=== PATIENT | female | born 1960 | race African-American/Black ===

== ENCOUNTER 2020-12-15 20:30 | Inpatient (IN) | payer MEDICARE, OTHER, SELFPAY ==
[~2020-12-15] VITALS: Ht 165.1 cm; Wt 138.8 kg
[2020-12-15 20:30] VITALS: BP_SYST 130
[2020-12-15] MEDS ORDERED: HYDROcodone/ACETAMIN 5-325 MG TAB (NORCO/ VICODIN) PO ONE (21:30)
[2020-12-15] MEDS ORDERED: IPRATROPIUM/ALBUTEROL SULFATE 3 ML AMPUL.NEB (DUONEB) INH ONE (21:30)
[2020-12-15] MEDS ORDERED: HYDROcodone/ACETAMIN 5-325 MG TAB (NORCO/ VICODIN) ONE (21:56)
[2020-12-15 22:14] LABS: BASOPHILS # (AUTO) 0.1 K/uL (0.0-0.2); BASOPHILS % (AUTO) 1.2 % (0.0-2.0); EOSINOPHILS # (AUTO) 0.1 K/uL (0.0-0.4); EOSINOPHILS % (AUTO) 1.5 % (0.0-4.0); HEMATOCRIT 30.5 % (36-48); LYMPHOCYTES # (AUTO) 3.1 K/uL (1.0-5.5); LYMPHOCYTES % (AUTO) 36.8 % (20.5-51.5); MEAN CORPUSCULAR HEMOGLOBIN 29 pg (27-31); MEAN CORPUSCULAR HGB CONC 33 % (32-36); MEAN CORPUSCULAR VOLUME 89 fL (79.0-98.0); MONOCYTES # (AUTO) 0.8 K/uL (0.0-1.0); NEUTROPHILS # (AUTO) 4.4 K/uL (1.8-7.7); NEUTROPHILS % (AUTO) 51.5 % (40.0-70.0); PLATELET COUNT (AUTO) 255 K/uL (130-430); RED BLOOD CELL COUNT(AUTO) 3.42 MIL/uL (4.2-6.2); RED CELL DISTRIBUTION WIDTH 17.4 % (9.0-15.0); WHITE BLOOD COUNT (AUTO) 8.5 K/uL (4.8-10.8)
[2020-12-15 22:19] LABS: CALCIUM 8.9 mg/dL (8.4-11.0); CREATININE 0.65 mg/dL (0.55-1.30); POTASSIUM 3.5 mmol/L (3.5-5.1)
[2020-12-15 22:26] LABS: PROTHROMBIN TIME 10.6 SECS (9.5-12.5)
[2020-12-15 22:27] LABS: ALBUMIN 2.9 g/dL (3.4-4.8); TOTAL BILIRUBIN 0.3 mg/dL (0.0-1.0)
[2020-12-15] MEDS ORDERED: cefTRIAXone 1 GM IVPB PREMIX 50 ML IV ONE (23:15)
[2020-12-15] MEDS ORDERED: AZITHROMYCIN 250 MG TABLET PO ONE (23:15)
[2020-12-15] MEDS ORDERED: GLU500 PO (23:59)
[2020-12-15] MEDS ORDERED: ALBMDI INH (23:59)
[2020-12-15] MEDS ORDERED: ASCO500T20 PO (23:59)
[2020-12-15] MEDS ORDERED: HYDR-3110 PO (23:59)
[2020-12-15] MEDS ORDERED: MELO15TA13 PO (23:59)
[2020-12-15] MEDS ORDERED: NORT25CA5 PO (23:59)
[2020-12-15] MEDS ORDERED: ALVESCO PO (23:59)
[2020-12-15] MEDS ORDERED: MULT-1117 PO (23:59)
[2020-12-15] MEDS ORDERED: LIP40 PO (23:59)
[2020-12-15] MEDS ORDERED: OMEP20CA15 PO (23:59)
[2020-12-16] MEDS ORDERED: KETAMINE 30 MG/3 ML SYRINGE ONE (00:29)
[2020-12-16 04:11] VITALS: BP_SYST 127
[2020-12-16 04:26] LABS: BILIRUBIN,URINE NEGATIVE (NEGATIVE); CLARITY/URINE CLEAR (CLEAR); COLOR,URINE YELLOW (YELLOW); GLUCOSE,URINE NEGATIVE (NEGATIVE); KETONES,URINE NEGATIVE (NEGATIVE); LEUKOCYTE ESTERASE ,URINE 2+ (NEGATIVE); NITRITE, URINE POSITIVE (NEGATIVE); PROTEIN URINE NEGATIVE (NEGATIVE); UROBILINOGEN,URINE 0.2 (0.2-1.0)
[2020-12-16 04:32] LABS: BLOOD, URINE TRACE (NEGATIVE)
[2020-12-16 04:34] LABS: BACTERIA,URINE MANY /HPF (None Seen)
[2020-12-16] MEDS ORDERED: HYDROcodone/ACETAMIN 10-325 MG TAB ONE (05:30)
[2020-12-16 05:43] VITALS: BP_SYST 127
[2020-12-16] MEDS ORDERED: PIPERACILLIN/TAZO 3.375/DEX-IS 50 ML IV SCH (06:00)
[2020-12-16] MEDS: HYDROcodone/ACETAMIN 10-325 MG TAB PO PRN ×3 (06:13→17:07)
[2020-12-16 08:00] VITALS: BP_SYST 143
[2020-12-16] MEDS ORDERED: DOCUSATE SODIUM 250 MG CAPSULE PO SCH (09:00)
[2020-12-16] MEDS ORDERED: ALBUTEROL MDI INHALATION 8 GM INH INH SCH (10:45)
[2020-12-16] MEDS ORDERED: NON-FORMULARY MEDICATION (Hydrocodone Bit/Acetaminophen (Hydrocodon-Acetaminophen 5-300) 1 PO SCH (10:45)
[2020-12-16] MEDS ORDERED: ALBUTEROL SULFATE 0.083% 2.5 MG/3 ML VIAL.NEB INH ONE (10:59)
[2020-12-16] MEDS ORDERED: FLUCONAZOLE 100 MG TABLET (DIFLUCAN) PO ONE (11:00)
[2020-12-16] MEDS ORDERED: ENOXAPARIN SODIUM 100 MG/ML SYRINGE SUBCUT ONE (11:00)
[2020-12-16] MEDS ORDERED: DOXYCYCLINE HYCLATE 100 MG CAPSULE PO ONE (11:00)
[2020-12-16] MEDS ORDERED: ASPIRIN 81 MG TABLET(ECOTRIN) PO ONE (11:00)
[2020-12-16] MEDS: ALBUTEROL SULFATE 0.083% 2.5 MG/3 ML VIAL.NEB INH SCH (11:23)
[2020-12-16] MEDS ORDERED: ONDANSETRON HCL 4 MG/2 ML VIAL IVP PRN (11:45)
[2020-12-16] MEDS ORDERED: ACETAMINOPHEN 325 MG TABLET PO PRN (11:45)
[2020-12-16] MEDS ORDERED: DOCUSATE SODIUM 250 MG CAPSULE PO ONE (11:45)
[2020-12-16] MEDS ORDERED: NALOXONE HCL 0.4 MG/ML AMP (NARCAN) IVP PRN (11:45)
[2020-12-16] MEDS ORDERED: BISACODYL 5 MG TABLET.DR (DULCOLAX) PO PRN (11:45)
[2020-12-16] MEDS ORDERED: CHOLECALCIFEROL (VITAMIN D3) 5,000 UNIT TABLET PO ONE (11:45)
[2020-12-16 12:03] VITALS: BP_SYST 135
[2020-12-16] MEDS: LEVOFLOXACIN 500 MG/D5W 100 ML IV SCH (12:22)
[2020-12-16 16:00] VITALS: BP_SYST 144
[2020-12-16] MEDS: HYDROcodone/ACETAMIN 5-325 MG TAB (NORCO/ VICODIN) PO PRN ×2 (17:05→22:00)
[2020-12-16 20:00] VITALS: BP_SYST 147
[2020-12-16] MEDS: DOCUSATE SODIUM 250 MG CAPSULE PO SCH (22:00)
[2020-12-16] MEDS: DOXYCYCLINE HYCLATE 100 MG CAPSULE PO SCH (22:00)
[2020-12-16] MEDS: ENOXAPARIN SODIUM 100 MG/ML SYRINGE SUBCUT SCH (22:00)
[2020-12-16] MEDS ORDERED: AZITHROMYCIN 500 MG in NS 250 ML IV SCH (23:00)
[2020-12-17] VITALS: BP_SYST 128
[2020-12-17] MEDS: HYDROcodone/ACETAMIN 5-325 MG TAB (NORCO/ VICODIN) PO PRN ×4 (04:45→17:59)
[2020-12-17] MEDS ORDERED: metFORMIN HCL 500 MG TABLET PO SCH (08:00)
[2020-12-17] MEDS ORDERED: ASPIRIN 81 MG TABLET(ECOTRIN) PO SCH (09:00)
[2020-12-17] MEDS ORDERED: MULTIVITAMINS TAB 1 TABLET PO SCH (09:00)
[2020-12-17] MEDS: ENOXAPARIN SODIUM 100 MG/ML SYRINGE SUBCUT SCH ×2 (09:00→20:29)
[2020-12-17] MEDS ORDERED: ASCORBIC ACID 500 MG TABLET PO SCH (09:00)
[2020-12-17] MEDS ORDERED: PANTOPRAZOLE SODIUM 40 MG TAB PO SCH (09:00)
[2020-12-17] MEDS ORDERED: ATORVASTATIN 20 MG TABLET PO SCH (09:00)
[2020-12-17] MEDS: DOCUSATE SODIUM 250 MG CAPSULE PO SCH ×2 (09:00→20:28)
[2020-12-17] MEDS ORDERED: CHOLECALCIFEROL (VITAMIN D3) 5,000 UNIT TABLET PO SCH (09:00)
[2020-12-17] MEDS ORDERED: NORTRIPTYLINE HCL 25 MG CAPSULE PO SCH (09:00)
[2020-12-17] MEDS ORDERED: ALVESCO INH SCH (09:00)
[2020-12-17] MEDS: DOXYCYCLINE HYCLATE 100 MG CAPSULE PO SCH (09:00)
[2020-12-17] MEDS ORDERED: FLUCONAZOLE 100 MG TABLET (DIFLUCAN) PO SCH (09:00)
[2020-12-17 10:50] LABS: BASOPHILS % (AUTO) 0.6 % (0.0-2.0); EOSINOPHILS # (AUTO) 0.2 K/uL (0.0-0.4); EOSINOPHILS % (AUTO) 2.2 % (0.0-4.0); HEMATOCRIT 31.7 % (36-48); LYMPHOCYTES # (AUTO) 2.3 K/uL (1.0-5.5); LYMPHOCYTES % (AUTO) 29.7 % (20.5-51.5); MEAN CORPUSCULAR HEMOGLOBIN 29 pg (27-31); MEAN CORPUSCULAR HGB CONC 32 % (32-36); MEAN CORPUSCULAR VOLUME 91 fL (79.0-98.0); MONOCYTES # (AUTO) 0.8 K/uL (0.0-1.0); MONOCYTES % (AUTO) 10.1 % (1.7-9.3); NEUTROPHILS # (AUTO) 4.4 K/uL (1.8-7.7); NEUTROPHILS % (AUTO) 57.4 % (40.0-70.0); PLATELET COUNT (AUTO) 241 K/uL (130-430); RED BLOOD CELL COUNT(AUTO) 3.48 MIL/uL (4.2-6.2); RED CELL DISTRIBUTION WIDTH 17.4 % (9.0-15.0); WHITE BLOOD COUNT (AUTO) 7.7 K/uL (4.8-10.8)
[2020-12-17 10:51] LABS: CALCIUM 9.1 mg/dL (8.4-11.0); CREATININE 0.68 mg/dL (0.55-1.30); POTASSIUM 4.1 mmol/L (3.5-5.1)
[2020-12-17] MEDS ORDERED: ALBUTEROL SULFATE 0.083% 2.5 MG/3 ML VIAL.NEB INH ONE ×3 (11:31→20:28)
[2020-12-17 11:40] VITALS: BP_SYST 133
[2020-12-17] MEDS ORDERED: DOCUSATE SODIUM 100 MG/10 ML UDC ONE (11:42)
[2020-12-17] MEDS: ALBUTEROL SULFATE 0.083% 2.5 MG/3 ML VIAL.NEB INH SCH ×3 (11:43→19:23)
[2020-12-17] MEDS: LEVOFLOXACIN 500 MG/D5W 100 ML IV SCH (11:44)
[2020-12-17 15:43] VITALS: BP_SYST 147
[2020-12-17 20:00] VITALS: BP_SYST 138
[2020-12-17] MEDS ORDERED: CEFEPIME 0.5 GM in D5W 50 ML IV SCH (21:00)
[2020-12-17 22:25] VITALS: BP_SYST 138
== END 2020-12-17 23:00 | DRG 193 ==
LOC: SED 20:30 → STU 23:45
PROVIDERS: ADMIT Internal Medicine; ATTEND Internal Medicine
DX: J15.9 Unspecified bacterial pneumonia (principal); J96.20 Acute and chronic respiratory failure, unspecified whether with hypoxia or hypercapnia; G82.50 Quadriplegia, unspecified; N39.0 Urinary tract infection, site not specified; E44.1 Mild protein-calorie malnutrition; Z68.43 Body mass index [BMI] 50.0-59.9, adult; Y95 Nosocomial condition; E11.9 Type 2 diabetes mellitus without complications; E66.01 Morbid (severe) obesity due to excess calories; E78.5 Hyperlipidemia, unspecified; J45.909 Unspecified asthma, uncomplicated; I48.0 Paroxysmal atrial fibrillation; G89.4 Chronic pain syndrome; D64.9 Anemia, unspecified; Z88.0 Allergy status to penicillin; Z88.8 Allergy status to other drugs, medicaments and biological substances; Z93.0 Tracheostomy status; Z79.891 Long term (current) use of opiate analgesic; Z79.899 Other long term (current) drug therapy; Z78.9 Other specified health status; Z87.891 Personal history of nicotine dependence; Z87.01 Personal history of pneumonia (recurrent)
CPT/HCPCS: 36415; 71045; 80048; 80053; 81000-TC; 82962; 83605; 83880; 84484; 85025; 85379; 85610-TC; 85730-TC; 87040-TC; 87070-TC; 87081; 87086; 87186-TC; 87205-TC; 93005; 93970; 94640; 94760; 99291; G0378; J0456; J0692; J0696; J1650; J1956; J2543; J7050; J7060; J7613; Q0144; U0003